=== PATIENT | female | born 1980 | race Two or more races ===

== ENCOUNTER 2017-02-28 21:15 | Emergency (ER) | payer OTHER ==
[~2017-02-28] VITALS: Ht 160 cm; Wt 108.9 kg
[~2017-02-28 21:15] MED LIST: CITA40TA22 PO
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
--- NOTE | 2017-02-28 22:51 | NUR ---
Patient discharged to home in stable condition. Written and verbal after care instructions given. Patient verbalizes understanding of instruction. Patient ambulatory with a steady gait, no further complaints.
[2017-02-28 22:52] VITALS: BP 128/80
== END 2017-02-28 22:53 | disposition home or self-care (01) ==
LOC: ER 21:19
DX: M79.641 Pain in right hand (principal); M54.12 Radiculopathy, cervical region; F32.9 Major depressive disorder, single episode, unspecified; F90.9 Attention-deficit hyperactivity disorder, unspecified type; Z91.018 Allergy to other foods; V89.2XXA Person injured in unspecified motor-vehicle accident, traffic, initial encounter; Y93.89 Activity, other specified; Y92.410 Unspecified street and highway as the place of occurrence of the external cause; Y99.8 Other external cause status
CPT/HCPCS: 99283; A4606; Z7610